=== PATIENT | male | born 1955 | race Caucasian/White ===

== ENCOUNTER 2024-02-25 09:38 | Emergency (ER) | payer OTHER ==
[2024-02-25] MEDS ORDERED: Cephalexin 500 MG Cap ONE (10:00)
== END 2024-02-25 10:15 | disposition home or self-care (01) ==
LOC: LB.ED 09:38
DX: L08.9 Local infection of the skin and subcutaneous tissue, unspecified (principal); Z79.899 Other long term (current) drug therapy
CPT/HCPCS: 99283; A9270